=== PATIENT | female | born 1985 | race African-American/Black ===

== ENCOUNTER 2017-06-08 06:42 | Emergency (ER) | payer SELFPAY ==
[~2017-06-08] VITALS: Ht 170.2 cm; Wt 132.9 kg
[2017-06-08 06:50] VITALS: BP 135/86
[2017-06-08] MEDS ORDERED: ALBUTEROL2.5 MG/3 M INH (06:53)
--- NOTE | 2017-06-08 06:54 | Emergency Room Report ---
History of Present Illness General Chief Complaint: Upper Respiratory Illness Source: Patient Present Illness HPI 31YOF walk-in with 4 days sore throat/hoarseness after repeated episodes dry cough History of asthma but denies SOB, chest pain Benson fever/chills, myalgias No sick contacts at home/work Took OTC meds without much improvement Allergies: Coded Allergies: No Known Allergies (Unverified , 06/08/17) Patient History Past Medical History: asthma Past Surgical History: none Pertinent Family History: none Social History: Reports: smoking Last Menstrual Period: UNK Now: No Immunizations: UTD Reviewed Nursing Documentation: PMH: Agreed, PSxH: Agreed Review of Systems All Other Systems: negative except mentioned in HPI Physical Exam Vital Signs Date Time Temp Pulse Resp B/P (MAP) Pulse Ox O2 Delivery O2 Flow Rate FiO2 06/08/17 06:44 97.9 93 18 138/89 96 Room Air Sp02 EP Interpretation: reviewed, normal General Appearance: normal inspection, well appearing, no apparent distress, alert, GCS 15, non-toxic Head: normocephalic, atraumatic Eyes: bilateral eye PERRL, bilateral eye EOMI ENT: normal ENT inspection, hearing grossly normal, normal pharynx, no angioedema, normal voice, TMs + canals normal, uvula midline, moist mucus membranes, dry mucus membranes Neck: normal inspection, full range of motion, supple, thyroid normal, no meningismus, no bony tend Respiratory: normal inspection, lungs clear, normal breath sounds, no rhonchi, no respiratory distress, no retraction, no accessory muscle use, no wheezing, speaking full sentences Cardiovascular #1: regular rate, rhythm, no edema, no JVD, normal capillary refill Gastrointestinal: normal inspection, normal bowel sounds, non tender, soft, no mass, no peritonitis, non-distended, no guarding, no hernia, no pulsatile mass Genitourinary: no CVA tenderness Musculoskeletal: normal inspection, back normal, normal range of motion, no calf tenderness, pelvis stable, Chris's Sign negative Neurologic: normal inspection, alert, oriented x3, responsive, mental health unit lead psychologist III-XII nml as tested, motor strength/tone normal, cerebellar normal, normal gait, speech normal Psychiatric: normal inspection, judgement/insight normal, mood/affect normal, no suicidal/homicidal ideation, no delusions Skin: normal inspection, normal color, no rash Lymphatic: normal inspection, no adenopathy Medical Decision Making Diagnostic Impression: Primary Impression: Upper respiratory infection Qualified Codes: J06.9 - Acute upper respiratory infection, unspecified Additional Impressions: Flu-like symptoms Sore throat (viral) ER Course VSS, afebrile Not in asthma exac Likely viral URI No sign of strep pharyngitis or otitis media Improved with nebulized albuterol, T#3 States has enough home ventolin ER course: Patient has remained stable during ED stay. Disposition: Patient is to be discharged to home. Prescriptions given are T#3, motrin Patient is instructed to follow up with their primary care doctor within 5 days. Strict return precautions discussed with patient such as fever, chills, worsening/severe pain, nausea, vomiting, which may indicate severe illness. Patient verbalizes understanding and agrees with plan. Please note that this Emergency Department Report was dictated using Bin[employer] ATE[employer] inspector technology software, occasionally this can lead to erroneous entry secondary to interpretation by the dictation equipment Last Vital Signs Date Time Temp Pulse Resp B/P (MAP) Pulse Ox O2 Delivery O2 Flow Rate FiO2 06/08/17 06:44 97.9 93 18 138/89 96 Room Air Status: improved Disposition: HOME, SELF-CARE Scripts Ibuprofen* (MOTRIN*) 800 Mg Tablet 800 MG ORAL THREE TIMES A DAY for sore throat for 7 Days, #30 TAB 0 Refills Prov: CARROL JETER M.D. 06/08/17 Acetaminophen With Codeine (T#3) (TYLENOL #3 TAB*) Y Tab 1 TAB ORAL QHS Y for For Cough for 7 Days, #20 TAB Prov: CARROL JETER M.D. 06/08/17 CARROL JETER M.D. Jun 08, 2017 06:54
[2017-06-08] MEDS ORDERED: ACETAMINOPHEN-1 EAC1 ORAL (07:05)
[2017-06-08] MEDS ORDERED: IBUPROFEN800 MG ORAL (07:05)
[2017-06-08] MEDS ORDERED: Albuterol ud Inhalation HHN ONE (07:15)
[2017-06-08] MEDS ORDERED: Tylenol #3 tab (300mg/30mg) ORAL ONE (07:15)
[2017-06-08 07:43] VITALS: BP 133/90
== END 2017-06-08 07:43 | disposition home or self-care (01) ==
LOC: EMR 07:04
DX: J06.9 Acute upper respiratory infection, unspecified (principal); J11.1 Influenza due to unidentified influenza virus with other respiratory manifestations; J02.8 Acute pharyngitis due to other specified organisms; B97.89 Other viral agents as the cause of diseases classified elsewhere; F17.200 Nicotine dependence, unspecified, uncomplicated
CPT/HCPCS: 99283

== ENCOUNTER 2017-12-13 23:38 | Emergency (ER) | payer SELFPAY ==
[~2017-12-13] VITALS: Ht 170.2 cm; Wt 122.5 kg
[~2017-12-13 23:38] MED LIST: ACETAMINOPHEN-1 EAC1 ORAL; ALBUTEROL2.5 MG/3 M INH; IBUPROFEN800 MG ORAL
[2017-12-14] MEDS ORDERED: Ketorolac 30mg Inj IV ONE (00:30)
[2017-12-14 00:47] LABS: BILIRUBIN, URINE NEGATIVE (NEGATIVE); GLUCOSE, URINE (UA) NEGATIVE (NEGATIVE); KETONES,URINE NEGATIVE (NEGATIVE); LEUKOCYTE ESTERASE ,URINE 1+ (NEGATIVE); NITRITE,URINE NEGATIVE (NEGATIVE); PH,URINE 6.5 (4.5-8.0); PROTEIN,URINE 1+ (NEGATIVE); UROBILINOGEN,URINE 1 MG/DL (NORMAL)
[2017-12-14 01:01] LABS: APPEARANCE,URINE SLIGHTLY CLOUDY; COLOR,URINE YELLOW
[2017-12-14 01:06] LABS: BASOPHILS % (AUTO) 0.4 % (0.0-2.0); EOSINOPHILS % (AUTO) 0.7 % (0.0-3.0); HEMATOCRIT 36.5 % (37.0-47.0); HEMOGLOBIN 11.7 G/DL (12.0-16.0); LYMPHOCYTES % (AUTO) 19.5 % (20.0-45.0); MEAN CORPUSCULAR VOLUME 83 FL (80-99); MONOCYTES % (AUTO) 5.6 % (1.0-10.0); NEUTROPHILS % (AUTO) 73.9 % (45.0-75.0); PLATELET COUNT 277 K/UL (150-450); RED BLOOD COUNT 4.37 M/UL (4.20-5.40); RED CELL DISTRIBUTION WIDTH 11.6 % (11.6-14.8)
[2017-12-14 01:08] LABS: ANION GAP 5 mmol/L (5-15); BLOOD UREA NITROGEN 9 mg/dL (7-18); CALCIUM 8.5 MG/DL (8.5-10.1); CARBON DIOXIDE 30 MMOL/L (21-32); CHLORIDE 103 MMOL/L (98-107); POTASSIUM 3.4 MMOL/L (3.5-5.1); SODIUM 137 MMOL/L (136-145)
[2017-12-14 01:13] LABS: ALANINE AMINOTRANSFERASE 20 U/L (12-78); ALBUMIN 2.9 G/DL (3.4-5.0); ALBUMIN/GLOBULIN RATIO 0.7 (1.0-2.7); ALKALINE PHOSPHATASE 88 U/L (46-116); ASPARTATE AMINO TRANSFERASE 13 U/L (15-37); BILIRUBIN,TOTAL 0.3 MG/DL (0.2-1.0)
[2017-12-14 01:15] VITALS: BP 119/63
[2017-12-14] MEDS ORDERED: ZOFRAN4 MG ORAL (01:23)
[2017-12-14] MEDS ORDERED: CEPHALEXIN500 MG ORAL (01:23)
--- NOTE | 2017-12-14 01:23 | Emergency Room Report ---
History of Present Illness General Chief Complaint: Abdominal Pain Source: Patient Present Illness HPI Is a 32-year-old female with history of asthma. She presents with chief complaint abdominal pain, fever, nausea vomiting and lower back pain. Onset today. She said that she ate [employer] yesterday and woke up with abdominal cramps and vomiting. Unable to keep anything down. [place] chills and subjective fever. Vomiting is nonbloody nonbilious. No diarrhea. Does have some urinary frequency. Allergies: Coded Allergies: No Known Allergies (Unverified , 06/08/17) Patient History Past Medical History: see triage record, old chart reviewed, asthma Past Surgical History: other Pertinent Family History: none Social History: Denies: smoking Last Menstrual Period: a month ago Now: No Immunizations: other Reviewed Nursing Documentation: PMH: Agreed; PSxH: Agreed Nursing Documentation-PMH Hx Asthma: Yes Review of Systems Constitutional: Reports: chills, fever Eye: Denies: eye pain, blurred vision ENT: Denies: ear pain, nose congestion, throat swelling Respiratory: Denies: cough, shortness of breath Cardiovascular: Denies: chest pain, palpitations Gastrointestinal: Reports: abdominal pain, nausea, vomiting; Denies: diarrhea Musculoskeletal: Denies: back pain, joint pain Skin: Denies: rash Neurological: Denies: headache, numbness Endocrine: Denies: increased thirst, increased urine Hematologic/Lymphatic: Denies: easy bruising All Other Systems: negative except mentioned in HPI Physical Exam Vital Signs Date Time Temp Pulse Resp B/P (MAP) Pulse Ox O2 Delivery O2 Flow Rate FiO2 12/13/17 23:55 98.7 92 18 114/63 100 Room Air 98.8 vitals normal Sp02 EP Interpretation: reviewed, normal General Appearance: well appearing, no apparent distress, alert, obese Head: normocephalic, atraumatic Eyes: bilateral eye PERRL, bilateral eye EOMI ENT: hearing grossly normal, normal pharynx Neck: full range of motion, supple, no meningismus Respiratory: chest non-tender, lungs clear, normal breath sounds Cardiovascular #1: regular rate, rhythm, no murmur Gastrointestinal: no mass, no organomegaly, no bruit, non-distended, tenderness - mild, diffuse, decreased bowel sounds Musculoskeletal: back normal, gait/station normal, normal range of motion Neurologic: alert, oriented x3 Psychiatric: mood/affect normal Skin: warm/dry Medical Decision Making Diagnostic Impression: Primary Impression: Abdominal pain Qualified Codes: R10.84 - Generalized abdominal pain Additional Impression: UTI (urinary tract infection) Qualified Codes: N30.00 - Acute cystitis without hematuria ER Course Patient present with abdominal pain with nausea and vomiting. This may be secondary to food poisoning versus early viral gastritis enteritis. Patient is pain-free now. No longer nauseous. Tolerate by mouth. No localizing pain. I doubt this is appendicitis. No evidence of acute abdomen or obstruction. We' ll go ahead and treat for urinary tract infection. Last Vital Signs Date Time Temp Pulse Resp B/P (MAP) Pulse Ox O2 Delivery O2 Flow Rate FiO2 12/14/17 00:50 98.7 12/13/17 23:55 92 18 114/63 100 Room Air Status: improved Disposition: HOME, SELF-CARE Condition: Stable Scripts Ondansetron (Zofran) 4 Mg Tablet 4 MG ORAL Q6H PRN for Nausea & Vomiting, #10 TAB 0 Refills Prov: NEGRA CLAIRE M.D. 12/14/17 Cephalexin* (KEFLEX*) 500 Mg Capsule 500 MG ORAL TID, #21 CAP Prov: NEGRA CLAIRE M.D. 12/14/17 Referrals: NOT CHOSEN IPA/,REFERRING (PCP) Additional Instructions: Follow-up with your DrGail in 2 to 3 days if not better. Return if worse. NEGRA CLAIRE M.D. Dec 14, 2017 01:23
[2017-12-14] MEDS ORDERED: cefTRIAXone 1 GM in NS 55 ML IVPB ONE (01:30)
[2017-12-14 01:54] VITALS: BP 119/63
== END 2017-12-14 01:54 | disposition home or self-care (01) ==
LOC: EMR 23:59
DX: N39.0 Urinary tract infection, site not specified (principal); R10.84 Generalized abdominal pain; J45.909 Unspecified asthma, uncomplicated
CPT/HCPCS: 36415; 80053; 81003; 81025; 83690; 85025; 87086; 99284; J0696; J1885; J2405

== ENCOUNTER 2018-07-25 22:25 | Emergency (ER) | payer OTHER ==
[~2018-07-25] VITALS: Ht 170.2 cm; Wt 113.4 kg
[~2018-07-25 22:25] MED LIST changes: +CEPHALEXIN500 MG ORAL; +ZOFRAN4 MG ORAL
[2018-07-25 22:45] VITALS: BP 123/81
--- NOTE | 2018-07-25 22:45 | NUR ---
ED Nurse Note: pt walked in c/o back pain radiating to left leg starting today, pt states she was at work when it happened but denies any acute injuries. pt AA&ox4, gcs=15, resp even and unlabored on RA, ambulates w/ steady gait, will cont monitor.
--- NOTE | 2018-07-25 22:55 | Emergency Room Report ---
History of Present Illness General Chief Complaint: Lower Back Pain or Injury Source: Patient Present Illness HPI This is a 32-year-old female presented after increased left-sided low back pain for the past 2-3 days. Patient was noted to have increased pain worse with movement. She reports having increased sharp pain which was noted to have some associated numbness to the left thigh. She denies any dysuria or hematuria. She denies being . She reports having normal menses. Allergies: Coded Allergies: No Known Allergies (Unverified , 06/08/17) Patient History Past Medical History: see triage record Last Menstrual Period: Jun 16 2018 Now: No Reviewed Nursing Documentation: PMH: Agreed; PSxH: Agreed Nursing Documentation-PMH Hx Asthma: Yes Review of Systems All Other Systems: negative except mentioned in HPI Physical Exam Vital Signs Date Time Temp Pulse Resp B/P (MAP) Pulse Ox O2 Delivery O2 Flow Rate FiO2 07/25/18 22:35 98.2 100 18 123/81 98 Room Air General Appearance: well appearing, no apparent distress, alert, GCS 15, obese Head: normocephalic, atraumatic ENT: hearing grossly normal, normal voice Neck: full range of motion, supple Respiratory: lungs clear, normal breath sounds, no respiratory distress, speaking full sentences Cardiovascular #1: normal inspection Gastrointestinal: normal inspection, non tender, soft Musculoskeletal: normal inspection, normal range of motion, decreased range of mation Neurologic: normal inspection, alert, oriented x3, responsive, brand communications manager III-XII nml as tested, normal gait Psychiatric: mood/affect normal Skin: no rash Medical Decision Making Diagnostic Impression: Primary Impression: Sciatica ER Course Presented for back pain. Differential diagnosis included but was not limited to herniated disc, cauda equina syndrome, abdominal aortic aneurysm, perforated ulcer, spinal epidural abscess, spinal stenosis, lumbar fracture, metastatic lesion, pyelonephritis. Patient has a benign exam and does not appear to require any further imaging or laboratory testing at this time. Acute sciatica. Patient was noted to have pain appears to be consistent with a some muscle spasm. She was noted to have been ambulatory without assistance. And been urinating normal. Patient be placed on light duty. She was given Toradol for pain.This is not appear to have any evidence of acute abdomen. Patient will be placed on light duty. Patient advised to follow-up with workers comp physician approximate 1 week. She advised that she would likely need physical therapy. Labs Test 07/25/18 23:10 Urine Color Pale yellow Urine Appearance Clear Urine pH 6.5 (4.5-8.0) Urine Specific [place] 1.010 (1.005-1.035) Urine Protein Negative (NEGATIVE) Urine Glucose (UA) Negative (NEGATIVE) Urine Ketones Negative (NEGATIVE) Urine Blood Negative (NEGATIVE) Urine Nitrite Negative (NEGATIVE) Urine Bilirubin Negative (NEGATIVE) Urine Urobilinogen Normal MG/DL (0.0-1.0) Urine Leukocyte Esterase 1+ (NEGATIVE) Urine RBC 0-2 /HPF (0 - 2) Urine WBC 2-4 /HPF (0 - 2) Urine Squamous Epithelial Cells Few /LPF (NONE/OCC) Urine Bacteria Few /HPF (NONE) Urine HCG, Qualitative Negative (NEGATIVE) Last Vital Signs Date Time Temp Pulse Resp B/P (MAP) Pulse Ox O2 Delivery O2 Flow Rate FiO2 07/25/18 22:35 98.2 100 18 123/81 98 Room Air Status: improved Disposition: HOME, SELF-CARE Condition: Stable Scripts Cyclobenzaprine Hcl* (FLEXERIL*) 10 Mg Tablet 10 MG ORAL THREE TIMES A DAY, #30 TAB Prov: Aries Arnold MD 07/25/18 Ibuprofen* (MOTRIN*) 800 Mg Tablet 800 MG ORAL THREE TIMES A DAY for sore throat for 7 Days, #30 TAB 0 Refills Prov: Aries Arnold MD 07/25/18 Aries Arnold MD Jul 25, 2018 22:55
[2018-07-25] MEDS ORDERED: Ketorolac 60mg Inj IM ONE (23:00)
[2018-07-25 23:42] LABS: APPEARANCE,URINE CLEAR; BILIRUBIN, URINE NEGATIVE (NEGATIVE); COLOR,URINE PALE YELLOW; GLUCOSE, URINE (UA) NEGATIVE (NEGATIVE); KETONES,URINE NEGATIVE (NEGATIVE); LEUKOCYTE ESTERASE ,URINE 1+ (NEGATIVE); NITRITE,URINE NEGATIVE (NEGATIVE); PH,URINE 6.5 (4.5-8.0); PROTEIN,URINE NEGATIVE (NEGATIVE); UROBILINOGEN,URINE NORMAL MG/DL (0.0-1.0)
[2018-07-25] MEDS ORDERED: CYCLOBENZAPRINE10 MG ORAL (23:52)
[2018-07-25] MEDS ORDERED: IBUPROFEN800 MG ORAL (23:52)
--- NOTE | 2018-07-26 00:18 | NUR ---
ED Nurse Note: urine result negative, pain med given.
--- NOTE | 2018-07-26 00:26 | NUR ---
ED Nurse Note: pt cleared to be d/c per ERMD, pt discharge and aftercare instruction provided w/ prescription, pt education done via discussion and handout, pt advised to follow up with pcp or return to ed if sx worsen or new sx develop, pt verbalized undertanding and agrees with plan, vss, ambulatory w/ steady gait, left w/ all belongings.
[2018-07-26 00:27] VITALS: BP 120/78
== END 2018-07-26 00:27 | disposition home or self-care (01) ==
LOC: EMR 23:00
DX: M54.42 Lumbago with sciatica, left side (principal); J45.909 Unspecified asthma, uncomplicated
CPT/HCPCS: 81003; 81025; 99283

== ENCOUNTER 2018-10-25 13:11 | Emergency (ER) | payer SELFPAY ==
[~2018-10-25] VITALS: Ht 172.7 cm; Wt 123.4 kg
[~2018-10-25 13:11] MED LIST changes: +CYCLOBENZAPRINE10 MG ORAL
[2018-10-25 13:30] VITALS: BP 150/94
--- NOTE | 2018-10-25 13:38 | Emergency Room Report ---
History of Present Illness General Chief Complaint: Flu Like Symptoms Present Illness HPI 33-year-old female presents to the emergency department complaining of cough, nasal congestion, sore throat, 5 out of 10 severity left ear pain with subjective fevers x4 days. Patient denies recent travel or ill contacts denies neck pain or stiffness she denies headache or photophobia. Patient states she is up-to-date with vaccinations. Pt. utd with vaccinations. No aggravating or relieving factors at this time. hx of asthma. 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 Allergies: Coded Allergies: No Known Allergies (Unverified , 06/08/17) Patient History Past Medical History: see triage record Past Surgical History: none Pertinent Family History: none Now: No Immunizations: UTD Reviewed Nursing Documentation: PMH: Agreed; PSxH: Agreed Nursing Documentation-PMH Hx Asthma: Yes Review of Systems All Other Systems: negative except mentioned in HPI Physical Exam Vital Signs Date Time Temp Pulse Resp B/P (MAP) Pulse Ox O2 Delivery O2 Flow Rate FiO2 10/25/18 13:14 98.4 100 19 150/94 (112) 97 Room Air Sp02 EP Interpretation: reviewed, normal General Appearance: no apparent distress, alert, GCS 15, non-toxic Head: normocephalic, atraumatic Eyes: bilateral eye normal inspection, bilateral eye PERRL ENT: hearing grossly normal, normal pharynx, normal voice, nasal congestion, pharyngeal erythema, other - Left TM erythematous and bulging, Canal is WNL. Neck: full range of motion, no meningismus, no bony tend Respiratory: lungs clear, normal breath sounds, no respiratory distress, no wheezing, speaking full sentences Cardiovascular #1: regular rate, rhythm Gastrointestinal: soft, no mass Musculoskeletal: back normal, gait/station normal, normal range of motion, non- tender Neurologic: alert, oriented x3, responsive, motor strength/tone normal, sensory intact, normal gait, speech normal, grossly normal Psychiatric: judgement/insight normal Skin: normal color, no rash, warm/dry, well hydrated Lymphatic: no adenopathy Medical Decision Making PA Attestation Dr. Perera is my supervising Physician whom patient management has been discussed with. Diagnostic Impression: Primary Impression: Otitis media Qualified Codes: H65.92 - Unspecified nonsuppurative otitis media, left ear ER Course 33-year-old female presents to the emergency department complaining of cough, nasal congestion, sore throat, 5 out of 10 severity left ear pain with subjective fevers x4 days. Patient denies recent travel or ill contacts denies neck pain or stiffness she denies headache or photophobia. Patient states she is up-to-date with vaccinations. Pt. utd with vaccinations. No aggravating or relieving factors at this time. hx of asthma. 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 Ddx considered but are not limited to OM, OE, mastoiditis, TM perforation, FB, URI, PNA Vital signs: are WNL, pt. is afebrile H&PE are most consistent with otitis media-- Left ear, and URI ORDERS: none required at this time, the diagnosis is clinical ED INTERVENTIONS: None required at this time. DISCHARGE: At this time pt. is stable for d/c to home. With PO ABX. Will provide printed patient care instructions, and any necessary prescriptions. Care plan and follow up instructions have been discussed with the patient prior to discharge. Last Vital Signs Date Time Temp Pulse Resp B/P (MAP) Pulse Ox O2 Delivery O2 Flow Rate FiO2 10/25/18 13:14 98.4 100 19 150/94 (112) 97 Room Air Status: improved Disposition: HOME, SELF-CARE Condition: Stable Scripts Acetaminophen* (TYLENOL EXTRA STRENGTH*) 500 Mg Tablet 500 MG ORAL Q6H PRN for Mild Pain/Temp > 100.5, #20 TAB 0 Refills Prov: Jordyn Melendez 10/25/18 Benzonatate* (TESSALON PERLE*) 100 Mg Capsule 100 MG ORAL THREE TIMES A DAY, #30 PERLE Prov: Jordyn Melendez 10/25/18 Codeine/Promethazine Hcl* (PROMETHAZINE-CODEINE SYRUP*) 118 Ml Syrup 5 ML ORAL Q6H PRN for For Cough, #120 ML 0 Refills Prov: Jordyn Melendez 10/25/18 Amoxicillin/Potassium Clav 875-125* (AUGMENTIN 875-125 TABLET*) 1 Each Tablet 1 TAB ORAL TWICE A DAY for 10 Days, #20 TAB Prov: Jordyn Melendez 10/25/18 Departure Forms: Return to Work Return to Work Date: Oct 28, 2018 Work Restrictions: None Other Restrictions: May return Sooner if Symptoms have resolved. Return to Full Activity: Oct 28, 2018 Patient Instructions: Otitis Media, Adult, [id number], Upper Respiratory Infection, Adult, [id number] Additional Instructions: Take medications as directed. Follow up with a Primary Care Provider in 3-5 days, even if your symptoms have resolved. --Please review list of primary care clinics, if you do not already have a primary care provider Return sooner to ED if new symptoms occur, or current symptoms become worse. Do not drink alcohol, drive, or operate heavy machinery while taking Cough Syrup as this may cause drowsiness. - Please note that this Emergency Department Report was dictated using [employer] admin technology software, occasionally this can lead to erroneous entry secondary to interpretation by the dictation equipment. Jordyn Melendez Oct 25, 2018 13:38
[2018-10-25] MEDS ORDERED: PROMETHAZINE-C118 M1 ORAL (13:41)
[2018-10-25] MEDS ORDERED: TESSALON PERLE100 MG ORAL (13:41)
[2018-10-25] MEDS ORDERED: TYLENOL EXTRA500 MG ORAL (13:41)
[2018-10-25] MEDS ORDERED: AUGMENTIN 875-1 EAC1 ORAL (13:41)
== END 2018-10-25 14:14 | disposition home or self-care (01) ==
LOC: EMR 13:40
DX: H65.92 Unspecified nonsuppurative otitis media, left ear (principal); J45.909 Unspecified asthma, uncomplicated
CPT/HCPCS: 99282

== ENCOUNTER 2019-04-24 19:21 | Emergency (ER) | payer SELFPAY ==
[~2019-04-24] VITALS: Ht 170.2 cm; Wt 117.9 kg
[~2019-04-24 19:21] MED LIST changes: +AUGMENTIN 875-1 EAC1 ORAL; +PROMETHAZINE-C118 M1 ORAL; +TESSALON PERLE100 MG ORAL; +TYLENOL EXTRA500 MG ORAL
[2019-04-24] MEDS ORDERED: NAPROXEN250 MG ORAL (20:58)
--- NOTE | 2019-04-24 20:58 | Emergency Room Report ---
History of Present Illness General Chief Complaint: Lower Extremity Injury Source: Patient Present Illness HPI 33-year-old female presents with left knee pain, patient was standing all day yesterday, around 5 PM she endorsed pain while standing, her knee did not dislocate, and did not displace, she reports that her left knee started hurting sharp in nature aggravated with movement alleviated with rest severity is mild, intermittent worsened with movement, no fevers no chills, no numbness no tingling patient presents for evaluation Allergies: Coded Allergies: No Known Allergies (Unverified , 06/08/17) Patient History Past Medical History: see triage record Last Menstrual Period: now Now: No Reviewed Nursing Documentation: PMH: Agreed; PSxH: Agreed Nursing Documentation-PMH Hx Asthma: Yes Review of Systems All Other Systems: negative except mentioned in HPI Physical Exam Vital Signs Date Time Temp Pulse Resp B/P (MAP) Pulse Ox O2 Delivery O2 Flow Rate FiO2 04/24/19 19:36 98.1 93 18 126/73 (90) 95 Room Air General Appearance: well appearing, no apparent distress Head: normocephalic, atraumatic Eyes: bilateral eye PERRL, bilateral eye EOMI ENT: hearing grossly normal, normal voice Neck: full range of motion, supple Respiratory: no respiratory distress, speaking full sentences Musculoskeletal: other - Left lower extremity: 2+ PT DP, fires EHL, 5-5 plantar dorsiflexion at the ankle, 5-5 knee flexion extension, Apley grind test positive, anterior posterior drawer of the knee negative, no valgus varus stress Neurologic: alert, normal gait Psychiatric: mood/affect normal Skin: no rash Medical Decision Making Diagnostic Impression: Primary Impression: Knee pain, left Qualified Codes: M25.562 - Pain in left knee ER Course 33-year-old female presents with left knee pain, after standing for a long period of time, patient DDX includes meniscus injury, knee strain, arthritis, low suspicion for dislocation Patient did not want a test she states she is currently on her period , patient aware of the risks and benefits Will provide patient with pain medication, patient to follow-up with orthopedic surgeon Other X-Ray Diagnostic Results Other X-Ray Diagnostic Results : X-Ray ordered: Left Knee # of Views/Limited Vs Complete: 2 View Indication: Pain EP Interpretation: Yes Interpretation: no dislocation, no fractures Impression: No acute disease Electronically Signed by: Harley Crespo MD Last Vital Signs Date Time Temp Pulse Resp B/P (MAP) Pulse Ox O2 Delivery O2 Flow Rate FiO2 04/24/19 19:36 98.1 93 18 126/73 (90) 95 Room Air Disposition: HOME, SELF-CARE Condition: Stable Scripts Naproxen* (NAPROSYN*) 250 Mg Tablet 250 MG ORAL TID PRN for For Pain, #20 TAB 0 Refills Prov: Harley Crespo MD 04/24/19 Referrals: Orthopedic Urgent Care Patient Instructions: Knee Sprain Additional Instructions: The patient was provided with discharge instructions, notified to follow-up with a primary care doctor and or specialist in the next 24-48 hours, and to return to the ED if they have worsening of their symptoms. Please note that this report is being documented using [employer] technology. This can lead to erroneous entry secondary to incorrect interpretation by the dictating instrument. Harley Crespo MD Apr 24, 2019 20:58
[2019-04-24 21:30] VITALS: BP 126/73
--- NOTE | 2019-04-26 18:14 | Diagnostic Imaging Report ---
Indication: Left knee pain Technique: 2 views of the left knee Comparison: none Findings: No acute fractures. No dislocations. The joint spaces are preserved Impression: Negative
== END 2019-04-24 21:30 | disposition home or self-care (01) ==
LOC: EMR 21:20
DX: M25.562 Pain in left knee (principal)
CPT/HCPCS: 99283

== ENCOUNTER 2020-01-05 01:14 | Emergency (ER) | payer SELFPAY ==
[~2020-01-05] VITALS: Ht 170.2 cm; Wt 127.0 kg
[~2020-01-05 01:14] MED LIST changes: +NAPROXEN250 MG ORAL
[2020-01-05 01:30] VITALS: BP 141/93
--- NOTE | 2020-01-05 01:30 | NUR ---
ED Nurse Note: Patient walked into ED for c/o R shoulder pain that radiates to R arm. Patient denies any injury or trauma. Patient is aaox4, breathing is normal and unlabored.
--- NOTE | 2020-01-05 01:48 | Emergency Room Report ---
History of Present Illness General Chief Complaint: Pain Source: Patient Present Illness HPI 34-year-old otherwise healthy female here with right shoulder pain for 3 days. Patient says that she has been feeling pain in the right shoulder and says that she is unable to abduct her right arm past 90 degrees. Says that she has been moving heavy objects at home. Denies any other traumas. No focal numbness or weakness. No paresthesias. No trauma. No other pain. Has been taking over- the-counter medications without any relief. 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: No Patient History Last Menstrual Period: 12/27/19 Now: No Nursing Documentation-[facility] Past Medical History: No History, Except For Hx Asthma: Yes Review of Systems All Other Systems: negative except mentioned in HPI Physical Exam Vital Signs Date Time Temp Pulse Resp B/P (MAP) Pulse Ox O2 Delivery O2 Flow Rate FiO2 01/05/20 01:20 97.9 90 16 141/93 (109) 97 Room Air Sp02 EP Interpretation: reviewed, normal General Appearance: no apparent distress, alert, GCS 15, non-toxic Head: normocephalic, atraumatic Eyes: bilateral eye normal inspection, bilateral eye PERRL ENT: hearing grossly normal, normal pharynx, no angioedema, normal voice Neck: full range of motion, supple/symm/no masses Respiratory: chest non-tender, lungs clear, normal breath sounds, speaking full sentences Cardiovascular #1: regular rate, rhythm, no edema Cardiovascular #2: 2+ carotid (R), 2+ carotid (L), 2+ radial (R), 2+ radial (L) , 2+ dorsalis pedis (R), 2+ dorsalis pedis (L) Gastrointestinal: normal bowel sounds, non tender, soft, non-distended, no guarding, no rebound Rectal: deferred Genitourinary: normal inspection, no CVA tenderness Musculoskeletal: back normal, calf tenderness, gait/station normal, tender - Right anterior shoulder tenderness on palpation. Patient unable to abduct right shoulder past 90 degrees. Positive empty can test Neurologic: alert, motor strength/tone normal, oriented x3, sensory intact, responsive, speech normal Psychiatric: judgement/insight normal, memory normal, mood/affect normal, no suicidal/homicidal ideation Lymphatic: no adenopathy Medical Decision Making Diagnostic Impression: Primary Impression: Shoulder pain ER Course 34-year-old female here with nontraumatic right shoulder pain. Patient was hemodynamically stable and neurovascularly intact in the emergency department. She was placed in a sling and given a [place] with good resolution of her pain. She was neurovascularly intact before and after the sling was placed and she was inspected by myself. She had pain on palpation of the right shoulder without any obvious bony abnormalities. No other abnormalities of the right upper extremity. X-ray of the right shoulder showed: No acute bony or joint abnormalities. Patient was given information to follow-up with orthopedic surgery. Given pain medication prescription and discharged in stable condition. Last Vital Signs Date Time Temp Pulse Resp B/P (MAP) Pulse Ox O2 Delivery O2 Flow Rate FiO2 01/05/20 01:20 97.9 90 16 141/93 (109) 97 Room Air Scripts Naproxen* (NAPROSYN*) 250 Mg Tablet 250 MG ORAL TWICE A DAY for 14 Days, #28 TAB 0 Refills Prov: Santana Marsh M.D. 01/05/20 Santana Marsh M.D. Jan 05, 2020 01:48
[2020-01-05] MEDS ORDERED: HYDROcodone/Acetamin 5/325 tab ORAL ONE (02:00)
--- NOTE | 2020-01-05 03:30 | NUR ---
ED Nurse Note: Patient is sleeping soundly and snoring. NAD at this time. Will cont. to monitor.
--- NOTE | 2020-01-05 03:49 | Diagnostic Imaging Report ---
EXAM: XR Right Shoulder Complete, 2 or More Views CLINICAL HISTORY: PAIN TECHNIQUE: Two or more views of the right shoulder. COMPARISON: No relevant prior studies available. FINDINGS: Bones/joints: Unremarkable. No acute fracture. No dislocation. Soft tissues: Unremarkable. IMPRESSION: Normal right shoulder x-rays.
[2020-01-05] MEDS ORDERED: NAPROXEN250 MG ORAL (03:50)
[2020-01-05 04:05] VITALS: BP 132/90
--- NOTE | 2020-01-05 04:05 | NUR ---
ER DISCHARGE NOTE: Patient is cleared to be discharged per ERMD, pt is aox4, on room air, with stable vital signs. pt was given dc and prescription instructions, pt was able to verbalize understanding, pt id band removed. pt is able to ambulate with steady gait. pt took all belongings. pt placed in arm sling.
== END 2020-01-05 04:11 | disposition home or self-care (01) ==
LOC: EMR 01:59
DX: M25.511 Pain in right shoulder (principal)
CPT/HCPCS: 99283

== ENCOUNTER 2020-01-23 00:50 | Emergency (ER) | payer SELFPAY ==
[~2020-01-23] VITALS: Ht 170.2 cm; Wt 117.9 kg
[2020-01-23] MEDS ORDERED: Bactrim-DS 1 tab ORAL ONE (01:15)
[2020-01-23] MEDS ORDERED: HYDROcodone/Acetamin 5/325 tab ORAL ONE (01:15)
[2020-01-23] MEDS ORDERED: HYDROCODON-ACE1 EA15 ORAL (01:20)
[2020-01-23] MEDS ORDERED: BACTRIM DS TAB1 EAC1 ORAL (01:20)
--- NOTE | 2020-01-23 01:20 | Emergency Room Report ---
History of Present Illness General Chief Complaint: Skin Rash/Abscess Source: Patient Present Illness [facility] This a 34-year-old female with no past medical history. She presents with chief complaint of boils to her left axilla area. Onset for last 5 days. It was very large today and it drained. Painful. No fever chills but she has this problem before. She also has previous abscesses on her stomach and back area. No trauma. Better with rest. Worse with movement. Allergies: Coded Allergies: No Known Allergies (Unverified , 06/08/17) COVID-19 Screening Contact w/high risk pt: No Experienced COVID-19 symptoms?: No COVID-19 Testing performed PATIENT CARE SECRETARY: No Patient History Past Medical History: see triage record, old chart reviewed Past Surgical History: none Pertinent Family History: none Social History: Denies: smoking Last Menstrual Period: 01/16 Now: Yes : 2 Para: 0 Immunizations: other Reviewed Nursing Documentation: PMH: Agreed; PSxH: Agreed Nursing Documentation-PMH Past Medical History: No History, Except For Hx Asthma: Yes Review of Systems Eye: Denies: eye pain, blurred vision ENT: Denies: ear pain, nose congestion, throat swelling Respiratory: Denies: cough, shortness of breath Cardiovascular: Denies: chest pain, palpitations Gastrointestinal: Denies: abdominal pain, diarrhea, nausea, vomiting Musculoskeletal: Denies: back pain, joint pain Skin: Denies: rash Neurological: Denies: headache, numbness Endocrine: Denies: increased thirst, increased urine Hematologic/Lymphatic: Denies: easy bruising All Other Systems: negative except mentioned in HPI Physical Exam Vital Signs Date Time Temp Pulse Resp B/P (MAP) Pulse Ox O2 Delivery O2 Flow Rate FiO2 01/23/20 01:00 97.9 89 17 129/91 (104) 95 Room Air Vitals normal Sp02 EP Interpretation: reviewed, normal General Appearance: well appearing, no apparent distress, alert, obese Head: normocephalic, atraumatic Eyes: bilateral eye PERRL, bilateral eye EOMI ENT: hearing grossly normal, normal pharynx Neck: full range of motion, supple, no meningismus Respiratory: chest non-tender, lungs clear, normal breath sounds Cardiovascular #1: regular rate, rhythm, no murmur Gastrointestinal: normal bowel sounds, non tender, no mass, no organomegaly, no bruit, non-distended Musculoskeletal: back normal, normal range of motion, gait/station normal, other - Left axilla with small fluctuant area. Psychiatric: mood/affect normal Procedures Incision and Drainage Incision and Drainage : Consent: Verbal Site: Axilla, left Blade Size: 11 I & D Procedure: betadine prep, sterile drapes applied Wound Location: axilla Anesthesia: 1% Lidocaine Volume Anesthetic (ccs): 3 Patient Tolerated: Well Complications: None Progress Area cleaned with Betadine. Local anesthetic with 1% lidocaine without epinephrine. I made a 2 cm incision. There is only scant amount of drainage. Loculated area broken up. Dressing done. Patient taught a procedure without any problem. Medical Decision Making Diagnostic Impression: Primary Impression: Hidradenitis suppurativa of left axilla ER Course Patient with hidradenitis of her left axilla. Most likely staph since she has previous area of abscesses in the past. No deep infection. Patient I&D. Only small amount of purulent discharge. Patient said it drained copiously earlier today. Will discharge home. Last Vital Signs Date Time Temp Pulse Resp B/P (MAP) Pulse Ox O2 Delivery O2 Flow Rate FiO2 01/23/20 01:00 97.9 89 17 129/91 (104) 95 Room Air Status: improved Disposition: HOME, SELF-CARE Condition: Stable Scripts Hydrocodone/Acetaminophen 5-325* (HYDROCODONE/ACETAMINOPHEN 5-325*) 1 Each Tablet 1 TAB ORAL Q6H PRN for For Pain, #15 TAB 0 Refills Prov: Kehinde Zavaleta MD 01/23/20 Trimethoprim/Sulfamethoxazole 160/800* (BACTRIM DS TABLET*) 1 Each Tablet 1 TAB ORAL Q12H, #14 TAB 0 Refills Prov: Kehinde Zavaleta MD 01/23/20 Referrals: NOT CHOSEN IPA/,REFERRING (PCP) Patient Instructions: Abscess Additional Instructions: Follow-up with your doctor in 2-3 days for recheck if not better. Return if symptoms worsen. Kehinde Zavaleta MD Jan 23, 2020 01:20
[2020-01-23 01:40] VITALS: BP 129/91
== END 2020-01-23 01:40 | disposition home or self-care (01) ==
LOC: EMR 01:10
DX: L73.2 Hidradenitis suppurativa (principal); E66.9 Obesity, unspecified; Z68.41 Body mass index [BMI] 40.0-44.9, adult
CPT/HCPCS: 99282

== ENCOUNTER 2020-05-08 02:05 | Emergency (ER) | payer MEDICAID ==
[~2020-05-08] VITALS: Ht 170.2 cm; Wt 127.9 kg
[~2020-05-08 02:05] MED LIST changes: +BACTRIM DS TAB1 EAC1 ORAL; +HYDROCODON-ACE1 EA15 ORAL
--- NOTE | 2020-05-08 02:20 | NUR ---
ED Nurse Note: Pt walked in from home, ambulates with a steady gait. Vitals are stable on RA. Pt staes that she has had an abscess in her left axillary that has recently opened up and drained on its own tonight. She states that it is very painful and has a foul odor. On assemente the are dark nodules and a couple of open and draining openings in the left axillary region.
[2020-05-08 02:25] VITALS: BP 166/102
[2020-05-08] MEDS ORDERED: Lidocaine 1% Plain 30 ml INJ ONE (02:35)
[2020-05-08] MEDS ORDERED: IBUPROFEN600 M1 ORAL (02:37)
[2020-05-08] MEDS ORDERED: BACTRIM DS TAB1 EAC1 ORAL (02:37)
[2020-05-08] MEDS: HYDROcodone/Acetamin 5/325 tab ORAL ONE (02:38)
[2020-05-08] MEDS: Bactrim-DS 1 tab ORAL ONE (02:38)
--- NOTE | 2020-05-08 02:38 | Emergency Room Report ---
History of Present Illness General Chief Complaint: Skin Rash/Abscess Source: Patient Present Illness HPI Is a 34-year-old female with a hidradenitis. She presents with chief complaint of boil in her left axilla. Is been there for 2 weeks. She woke up this morning was draining. This to a couple more days painful. Worse with movement. Better with rest. No fever chills but no nausea no vomiting. Pain is 9 out of 10. Similar symptom in the past. 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: No Patient History Past Medical History: see triage record, old chart reviewed Past Surgical History: none Pertinent Family History: none Social History: Denies: smoking Last Menstrual Period: 04/22/2020 Now: No : 1 Para: 0 Immunizations: other Reviewed Nursing Documentation: PMH: Agreed; PSxH: Agreed Nursing Documentation-PMH Past Medical History: No History, Except For Hx Asthma: Yes Review of Systems Eye: Denies: eye pain, blurred vision ENT: Denies: ear pain, nose congestion, throat swelling Respiratory: Denies: cough, shortness of breath Cardiovascular: Denies: chest pain, palpitations Gastrointestinal: Denies: abdominal pain, diarrhea, nausea, vomiting Musculoskeletal: Denies: back pain, joint pain Skin: Denies: rash Neurological: Denies: headache, numbness Endocrine: Denies: increased thirst, increased urine Hematologic/Lymphatic: Denies: easy bruising All Other Systems: negative except mentioned in HPI Physical Exam Vital Signs Date Time Temp Pulse Resp B/P (MAP) Pulse Ox O2 Delivery O2 Flow Rate FiO2 05/08/20 02:06 98.1 90 20 167/109 (128) 97 Room Air Vitals with high blood pressure Sp02 EP Interpretation: reviewed, normal General Appearance: well appearing, no apparent distress, alert Head: normocephalic, atraumatic Eyes: bilateral eye PERRL, bilateral eye EOMI ENT: hearing grossly normal, normal pharynx Neck: full range of motion, supple, no meningismus Respiratory: chest non-tender, lungs clear, normal breath sounds Cardiovascular #1: regular rate, rhythm, no murmur Gastrointestinal: normal bowel sounds, non tender, no mass, no organomegaly, no bruit, non-distended Musculoskeletal: back normal, normal range of motion, gait/station normal, other - Left axilla: There is 2 fluctuant area is tender to palpation. There is 2 small area of ulceration is already draining. No redness. Psychiatric: mood/affect normal Procedures Incision and Drainage Incision and Drainage : Consent: Verbal Site: Axilla, left Blade Size: 11 I & D Procedure: betadine prep Wound Location: upper extremity Anesthesia: 1% Lidocaine Volume Anesthetic (ccs): 2 Patient Tolerated: Well Complications: None Progress Area cleaned with chlorhexidine. Local anesthetic 1% lidocaine without epinephrine injected. I made 2 small incision over the fluctuant area. There is mild amount of pus expressed. Patient told procedure without any problem. No complication. Medical Decision Making Diagnostic Impression: Primary Impression: Hidradenitis suppurativa of left axilla ER Course Patient with hidradenitis. No evidence of necrotizing fasciitis or deep infection. I recommend patient follow-up with a surgeon for more definitive treatment. Last Vital Signs Date Time Temp Pulse Resp B/P (MAP) Pulse Ox O2 Delivery O2 Flow Rate FiO2 05/08/20 02:25 98.2 92 19 166/102 98 Room Air Status: improved Disposition: HOME, SELF-CARE Condition: Stable Scripts Ibuprofen* (MOTRIN*) 600 Mg Tablet 600 MG ORAL Q8H PRN for FOR PAIN, #30 TAB 0 Refills Prov: Kehinde Zavaleta MD 05/08/20 Trimethoprim/Sulfamethoxazole 160/800* (BACTRIM DS TABLET*) 1 Each Tablet 1 TAB ORAL Q12H, #14 TAB 0 Refills Prov: Kehinde Zavaleta MD 05/08/20 Additional Instructions: Follow-up with your doctor in 7 days. You will need referral to see a surgeon. Return if symptoms worsen. Kehinde Zavaleta MD May 08, 2020 02:38
[2020-05-08] MEDS: Lidocaine 1% Plain 30 ml INJ ONE (02:46)
[2020-05-08 02:54] VITALS: BP 161/98
--- NOTE | 2020-05-08 02:56 | NUR ---
ER DISCHARGE NOTE: Patient is cleared to be discharged per ERMD, pt is aox4, on room air, with stable vital signs. pt was given dc and prescription instructions, pt was able to verbalize understanding, pt id band removed. pt is able to ambulate with steady gait. pt took all belongings.
== END 2020-05-08 02:54 | disposition home or self-care (01) ==
LOC: EMR 02:40
DX: L73.2 Hidradenitis suppurativa (principal); J45.909 Unspecified asthma, uncomplicated
CPT/HCPCS: 10060; J2001; Z7502; 99282

== ENCOUNTER 2020-07-06 00:50 | Emergency (ER) | payer SELFPAY ==
[~2020-07-06] VITALS: Ht 170.2 cm; Wt 127.0 kg
[~2020-07-06 00:50] MED LIST changes: +IBUPROFEN600 M1 ORAL
[2020-07-06 01:11] VITALS: BP 165/90
[2020-07-06] MEDS ORDERED: Lidocaine 1% 10mg/ml/Epi 0.005mg/ml 30ml vial INJ ONE (01:30)
[2020-07-06] MEDS ORDERED: Bactrim-DS 1 tab ORAL ONE (01:30)
--- NOTE | 2020-07-06 02:15 | Emergency Room Report ---
History of Present Illness General Chief Complaint: Skin Rash/Abscess Source: Patient Present Illness HPI Patient presents with increasing pain and swelling in her left armpit. She has had abscesses incised and drained in this area in the past. The pain is severe and constant and sharp and aching. She is used Chambers recently. She denies fevers or chills. She denies any muscle aches. There is no numbness. There is no drainage. Patient is right-handed. Patient denies exposure to Covid positive contacts. Allergies: Coded Allergies: No Known Allergies (Unverified , 06/08/17) COVID-19 Screening Contact w/high risk pt: No Experienced COVID-19 symptoms?: No COVID-19 Testing performed HEADER DOCK: No Patient History Past Medical History: see triage record Social History Narrative Patient drove herself here Reviewed Nursing Documentation: PMH: Agreed; PSxH: Agreed Nursing Documentation-PMH Hx Asthma: Yes Review of Systems Constitutional: Reports: see HPI Musculoskeletal: Reports: see HPI Skin: Reports: see HPI Neurological: Reports: see HPI Physical Exam Vital Signs Date Time Temp Pulse Resp B/P (MAP) Pulse Ox O2 Delivery O2 Flow Rate FiO2 07/06/20 00:54 98.2 97 20 165/90 (115) 96 Room Air Sp02 EP Interpretation: reviewed, normal General Appearance: well appearing, no apparent distress, GCS 15 Head: normocephalic Eyes: bilateral eye normal inspection, bilateral eye PERRL ENT: other - Wearing a mask Neck: normal inspection Respiratory: normal inspection Cardiovascular #1: regular rate, rhythm Cardiovascular #2: 2+ radial (L) Gastrointestinal: normal inspection, overweight Musculoskeletal: gait/station normal, normal range of motion Neurologic: alert, distal neuro normal, grossly normal Psychiatric: mood/affect normal Skin: warm/dry, other - Erythema and swelling in the left axilla with some fluctuance Procedures Incision and Drainage Incision and Drainage : Consent: Verbal Site: Left axilla Blade Size: 11 I & D Procedure: betadine prep, sterile drapes applied, sterile dressing applied, gauze wick placed Wound Location: other - Left axilla Wound's Depth, Shape: superficial Wound Length (cm): 2 - 2 areas of 1 cm incisions Wound Explored: contaminated - Pus expressed from both areas Irrigated w/ Saline (ccs): 10 Anesthesia: Lidocaine w/ Epi Volume Anesthetic (ccs): 5 Splint Applied?: No Patient Tolerated: Well Complications: None Medical Decision Making Diagnostic Impression: Primary Impression: Hidradenitis suppurativa of left axilla Additional Impression: Encounter for incision and drainage procedure ER Course Patient presents with swelling and pain in her left axilla with history of hidradenitis suppurativa. Differential includes abscess, lymphadenopathy and cellulitis. Antibiotics are indicated. Incision and drainage also indicated. Patient treated with Motrin for pain. See procedure note. Patient tolerated the procedure well. Drains were placed. Discussed with patient the need for possible definitive surgical intervention. Patient is stable for outpatient observation and treatment. Last Vital Signs Date Time Temp Pulse Resp B/P (MAP) Pulse Ox O2 Delivery O2 Flow Rate FiO2 07/06/20 02:18 98.2 20 143/82 96 Room Air 07/06/20 00:54 97 Status: improved Disposition: HOME, SELF-CARE Condition: Improved Scripts Ibuprofen* (MOTRIN*) 600 Mg Tablet 600 MG ORAL Q6H PRN for FOR PAIN, #20 TAB 0 Refills Prov: Hernandez Bailey MD 07/06/20 Bacitracin (Bacitracin) 28.4 Gm Oint...g. 1 APPLIC TOPIC BID, #30 GM Prov: Hernandez Bailey MD 07/06/20 Trimethoprim/Sulfamethoxazole 160/800* (BACTRIM DS TABLET*) 1 Each Tablet 1 TAB ORAL Q12H, #14 TAB 0 Refills Prov: Hernandez Bailey MD 07/06/20 Referrals: NOT CHOSEN IPA/,REFERRING (PCP) Hernandez Bailey MD Jul 06, 2020 02:15
[2020-07-06] MEDS ORDERED: IBUPROFEN600 M1 ORAL (02:17)
[2020-07-06] MEDS ORDERED: BACITRACIN15 GM TOPIC (02:17)
[2020-07-06] MEDS ORDERED: BACTRIM DS TAB1 EAC1 ORAL (02:17)
[2020-07-06 02:18] VITALS: BP 143/82
--- NOTE | 2020-07-06 02:18 | NUR ---
ER DISCHARGE NOTE: Patient is cleared to be discharged per ERMD, pt is aox4, on room air, with stable vital signs. pt was given dc and prescription instructions, pt was able to verbalize understanding, pt id band removed without complications. pt is able to ambulate with steady gait. pt took all belongings.
== END 2020-07-06 02:18 | disposition home or self-care (01) ==
LOC: EMR 01:33
DX: L73.2 Hidradenitis suppurativa (principal)
CPT/HCPCS: 10060; 99282

== ENCOUNTER 2020-07-08 23:57 | Emergency (ER) | payer MEDICAID ==
[~2020-07-08] VITALS: Ht 170.2 cm; Wt 132.4 kg
[~2020-07-08 23:57] MED LIST changes: +BACITRACIN15 GM TOPIC
[2020-07-09 00:12] VITALS: BP 141/87
--- NOTE | 2020-07-09 00:12 | NUR ---
IN [place] RM FOR PT EVAL
[2020-07-09] MEDS ORDERED: HYDROCODON-ACE1 EA15 ORAL (00:27)
--- NOTE | 2020-07-09 00:27 | Emergency Room Report ---
History of Present Illness General Chief Complaint: Wound Recheck/Suture Removal Source: Patient, Medical Record Present Illness HPI This is a 34-year-old female with recurrent hidradenitis. She presents with chief complaint of wound check and drainage of the left axilla. She was here on July 06 for the same thing and had I&D done and packing. She said it was small amount of drainage until today when there was a lot of drainage. She came in for scheduled recheck. Denies any fever chills with taking her antibiotics. No nausea vomiting. Pain is 8 out of 10. Worse with movement. Better with rest. 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 COVID-19 Screening: Negative COVID-19 COVID-19 Testing Source: [facility] Patient History Past Medical History: see triage record, old chart reviewed Past Surgical History: none Pertinent Family History: none Social History: Denies: smoking Last Menstrual Period: july 07 2020 Now: No Immunizations: other Reviewed Nursing Documentation: PMH: Agreed; PSxH: Agreed Nursing Documentation-PMH Past Medical History: No History, Except For Hx Asthma: Yes Review of Systems Eye: Denies: eye pain, blurred vision ENT: Denies: ear pain, nose congestion, throat swelling Respiratory: Denies: cough, shortness of breath Cardiovascular: Denies: chest pain, palpitations Gastrointestinal: Denies: abdominal pain, diarrhea, nausea, vomiting Musculoskeletal: Denies: back pain, joint pain Skin: Denies: rash Neurological: Denies: headache, numbness Endocrine: Denies: increased thirst, increased urine Hematologic/Lymphatic: Denies: easy bruising All Other Systems: negative except mentioned in HPI Physical Exam Vital Signs Date Time Temp Pulse Resp B/P (MAP) Pulse Ox O2 Delivery O2 Flow Rate FiO2 07/09/20 00:03 98.2 90 18 141/87 (105) 95 Room Air Vitals unremarkable Sp02 EP Interpretation: reviewed, normal General Appearance: well appearing, no apparent distress, alert Head: normocephalic, atraumatic Eyes: bilateral eye PERRL, bilateral eye EOMI ENT: hearing grossly normal, normal pharynx Neck: full range of motion, supple, no meningismus Respiratory: chest non-tender, lungs clear, normal breath sounds Cardiovascular #1: regular rate, rhythm, no murmur Gastrointestinal: normal bowel sounds, non tender, no mass, no organomegaly, no bruit, non-distended Musculoskeletal: back normal, normal range of motion, gait/station normal, other - Left axilla: She has 2 packing. There is another small area approximately that has scant amount of drainage. No crepitance. Psychiatric: mood/affect normal Procedures Incision and Drainage Incision and Drainage : Consent: Verbal Site: Left axilla Blade Size: 11 I & D Procedure: betadine prep Anesthesia: 1% Lidocaine Volume Anesthetic (ccs): 2 Patient Tolerated: Well Complications: None Progress Area cleaned with Betadine. Local anesthetic 1% lidocaine. Packings were removed. I made a small incision to open up the area that has loculation. Also extended the opening of the proximal abscess. There was scant amount of drainage. Patient taught procedure without any problem. Medical Decision Making Diagnostic Impression: Primary Impression: Encounter for wound re-check Additional Impression: Hidradenitis suppurativa of left axilla ER Course Patient with hidradenitis. It is draining well. Will discharge home. Last Vital Signs Date Time Temp Pulse Resp B/P (MAP) Pulse Ox O2 Delivery O2 Flow Rate FiO2 07/09/20 00:12 98.2 18 141/87 95 Room Air 07/09/20 00:03 90 Status: improved Disposition: HOME, SELF-CARE Condition: Stable Scripts Hydrocodone/Acetaminophen 5-325* (HYDROCODONE/ACETAMINOPHEN 5-325*) 1 Each Tablet 1 TAB ORAL Q6H PRN for For Pain, #10 TAB 0 Refills Prov: Kehinde Zavaleta MD 07/09/20 Patient Instructions: Wound Check Additional Instructions: Follow-up with your doctor in 7 days. Return if symptoms worsen. Kehinde Zavaleta MD Jul 09, 2020 00:27
[2020-07-09] MEDS ORDERED: HYDROcodone/Acetamin 5/325 tab ORAL ONE (00:30)
== END 2020-07-09 00:39 | disposition home or self-care (01) ==
LOC: EMR 07-09 00:08
DX: L73.2 Hidradenitis suppurativa (principal); J45.909 Unspecified asthma, uncomplicated
CPT/HCPCS: 10060; Z7502; 99282